=== PATIENT | male | born 1940 | race Caucasian/White ===

== ENCOUNTER → 2016-11-27 | Outpatient (CLI) | payer MEDICARE, BC ==
--- NOTE | 2016-11-27 12:48 | PN ---
DATE OF SERVICE: 11/27/2016 A 76-year-old gentleman who has been followed in the sleep center for treatment of obstructive sleep apnea/hypopnea syndrome. Patient continues to successfully use his treatment with BiPAP using it every night without significant problems. No snoring with the machine. [place] Sleepiness Scale is 5. Patient brought his BiPAP unit. I checked unit. BiPAP pressure is 15/11. Usage is 30 out of 30 nights for more than 4 hours. Subsequently 100% usage for more than 4 hours. No leak. Apnea-hypopnea index for last month is 1.8. Humidity at the level of 2. Patient did increase his weight from 215 pounds last year until 223 pounds today, but it is about the same weight as he had 2 years ago. MEDICATIONS: ( ), hydrochlorothiazide, omeprazole, metformin, atorvastatin, ( ). During physical, 76-year-old gentleman without distress. VITAL SIGNS: BP 154/78, HR 64, RR 16, height 67, weight 223.6, temp 97.7, oxygen saturations room air 94%. HEENT: PERRLA, EOMI. Evaluation of oropharynx showed extremely low position of soft palate. Neck: Supple. No JVD. Thyroid is not palpable. LUNGS: Clear to percussion and to auscultation. Good air exchange. No wheezing or rhonchi. HEART: S1, S2 regular. No murmurs, gallops, or rubs. ABDOMEN: Soft and nontender. Bowel sounds are present. No organomegaly appreciated. EXTREMITIES: No clubbing or cyanosis. INSTRUCTIONAL SUPPORT TECHNICIAN: Awake, alert, and oriented x3. Cranial nerves 2 to 7 intact. There is no fasciculation or atrophy noted. No focal deficits observed. IMPRESSION: 1. Obstructive sleep apnea/hypopnea syndrome clinically and by reading from the machine on control with BiPAP by the pressure 15/11. Patient demonstrated 100% compliance benefiting from treatment. 2. Obesity. 3. Hyperlipidemia. 4. Acid reflux. 5. Diabetes mellitus. 6. Status post bilateral knee replacement. 7. Status post cataract surgery bilaterally. PLAN: 1. Continue treatment with BiPAP every night for the whole night. 2. Prescription for all necessary BiPAP supplies, including mask, tube, filters. 3. Sleep hygiene with regular time in bed for at least 8 hours. 4. No driving if feeling any sleepiness. 5. Follow-up visit in one year. Thank you very much for allowing me to participate in the management of your patient. Sincerely, Micky South MD, PhD, FAASM. Diplomat of [place] [employer], Sleep Medicine Board by [place] [employer] [place] [employer] Negative Notcher of [facility]
== END | disposition home or self-care (01) ==
LOC: SLEEP 10:01
PROVIDERS: ATTEND Internal Medicine
DX: G47.33 Obstructive sleep apnea (adult) (pediatric) (principal); E66.9 Obesity, unspecified; E78.5 Hyperlipidemia, unspecified; K21.9 Gastro-esophageal reflux disease without esophagitis; E11.9 Type 2 diabetes mellitus without complications; Z96.653 Presence of artificial knee joint, bilateral; Z98.890 Other specified postprocedural states; Z79.899 Other long term (current) drug therapy; Z79.84 Long term (current) use of oral hypoglycemic drugs

== ENCOUNTER → 2018-01-21 | Outpatient (CLI) | payer MEDICARE, BC ==
--- NOTE | 2018-01-22 08:20 | CT ---
EXAMINATION TYPE: CT chest w con DATE OF EXAM: 01/21/2018 COMPARISON: NONE HISTORY: Abnormal Chest sounds per patient CT DLP: 751 mGycm Automated exposure control for dose reduction was used. CONTRAST: CT scan of the chest is performed with IV Contrast, patient injected with 100 mL of Isovue 300. FINDINGS: LUNGS: There are reticular opacities present bilaterally in the immediate subpleural lung, compatible with moderate interstitial lung disease including the upper lobes, there may be minimal honeycombing at the right lung base. No evident lung mass, pleural effusion. MEDIASTINUM: There are no greater than 1 cm hilar or mediastinal lymph nodes. Subcarinal calcified node present. No pericardial effusion is seen. AORTA: No additional significant abnormality is seen. There are coronary artery calcifications prese nt. Pulmonary arteries appear dilated. OTHER: Dependent high density present within the gallbladder. Cystic focus present within the liver near the steve measures 2.2 cm. Old left anterior rib fracture is present at the fourth fifth sixth r ibs on the left. Thoracic spondylosis is present. IMPRESSION: Interstitial lung disease. Correlate for pulmonary artery hypertension. Coronary artery disease. Possible granulomatous disease. Cholelithiasis and additional findings above.
== END | disposition home or self-care (01) ==
LOC: RADCTMAIN 16:42
PROVIDERS: ATTEND Family Medicine
DX: J84.89 Other specified interstitial pulmonary diseases (principal); J84.9 Interstitial pulmonary disease, unspecified; I25.10 Atherosclerotic heart disease of native coronary artery without angina pectoris
CPT/HCPCS: 82565; 84520; 71260; 36415; Q9967

== ENCOUNTER → 2018-02-12 | Outpatient (CLI) | payer MEDICARE, BC ==
--- NOTE | 2018-02-12 10:20 | US ---
EXAMINATION TYPE: US abdomen limited DATE OF EXAM: 02/12/2018 COMPARISON: CT 01/21/2018 CLINICAL HISTORY: K80.20 cholecystitis. EXAM MEASUREMENTS: Liver Length: 15.7 cm Gallbladder Wall: 0.3 cm CBD: 0.4 cm Right Kidney: 10.9 x 4.9 x 6.0 cm Patient had cough and trouble holding his breath, excessive overlying bowel gas, only able to scan in tercostally with limited window. Pancreas: Obscured by bowel gas Liver: very limited visualization, unable to see liver cyst seen on CT Gallbladder: limited visualization, unable to see dependant high density seen on CT Evidence for sonographic Latham's sign: no CBD: wnl Right Kidney: wnl IMPRESSION: 1. There are some mild thickening of the gallbladder wall. Clinical correlation for acute cholecystit is is recommended. 2. Examination is very limited due to bowel gas.
== END | disposition home or self-care (01) ==
LOC: RADUSMAIN 09:08
PROVIDERS: ATTEND Family Medicine
DX: K82.8 Other specified diseases of gallbladder (principal)
CPT/HCPCS: 76705

== ENCOUNTER → 2018-02-16 | Outpatient (CLI) | payer MEDICARE, BC ==
--- NOTE | 2018-02-17 10:02 | ECHOF ---
Referral Reason:J84.9 interstitial lung disease MEASUREMENTS -------- HEIGHT: 172.7 cm WEIGHT: 102.1 kg BP: RVIDd: 3.4 cm (< 3.3) IVSd: 1.3 cm (0.6 - 1.1) LVIDd: 5.8 cm (3.9 - 5.3) LVPWd: 1.4 cm (0.6 - 1.1) IVSs: 1.6 cm LVIDs: 3.5 cm LVPWs: 1.6 cm LAESV Index (A-L): 36.24 ml/m Ao Diam: 4.5 cm (2.0 - 3.7) AV Cusp: 2.3 cm (1.5 - 2.6) MV E Fernando: 0.67 m/s MV DecT: 509 ms MV A Fernando: 0.95 m/s MV E/A Ratio: 0.70 AR PHT: 906 ms RAP: 5.00 mmHg RVSP: 10.57 mmHg FINDINGS -------- Resting bradycardia (HR<60bpm). This was a technically adequate study. The left ventricular size is normal. There is mild concentric left ventricular hypertrophy. Overa ll left ventricular systolic function is normal with, an EF between 55 - 60 %. The right ventricle is normal in size and function. LA is midly dilated 29-33ml/m2. The right atrium is normal in size. Aortic valve is trileaflet and is mildly thickened. There is mild aortic regurgitation. There is no evidence of aortic stenosis. The mitral valve leaflets are mildly thickened. Mild mitral annular calcification present. There is trace to mild mitral regurgitation. Trace tricuspid regurgitation present. Right ventricular systolic pressure is normal at < 35 mmHg. There is no evidence of pulmonary hypertension. Trace/mild (physiologic) pulmonic regurgitation. The aortic root is mildy dilated up to 4.0 cm. Normal inferior vena cava with normal inspiratory collapse consistent with estimated right atrial pre ssure of 5 mmHg. There is no pericardial effusion. CONCLUSIONS -------- 1. Resting bradycardia (HR<60bpm). 2. This was a technically adequate study. 3. The left ventricular size is normal. 4. There is mild concentric left ventricular hypertrophy. 5. Overall left ventricular systolic function is normal with, an EF between 55 - 60 %. 6. LA is midly dilated 29-33ml/m2. 7. Aortic valve is trileaflet and is mildly thickened. 8. There is mild aortic regurgitation. 9. The mitral valve leaflets are mildly thickened. 10. Mild mitral annular calcification present. 11. There is trace to mild mitral regurgitation. 12. Trace tricuspid regurgitation present. 13. Right ventricular systolic pressure is normal at < 35 mmHg. 14. There is no evidence of pulmonary hypertension. 15. Trace/mild (physiologic) pulmonic regurgitation. 16. The aortic root is mildy dilated up to 4.0 cm. 17. There is no pericardial effusion. ICHTHYOLOGY TEACHER: Dean Samuel RDCS
== END | disposition home or self-care (01) ==
LOC: RADECHMAIN 15:26
PROVIDERS: ATTEND Family Medicine
DX: I34.0 Nonrheumatic mitral (valve) insufficiency (principal); I51.7 Cardiomegaly; I35.8 Other nonrheumatic aortic valve disorders
CPT/HCPCS: 93306

== ENCOUNTER → 2018-11-25 | Outpatient (CLI) | payer MEDICARE, BC ==
--- NOTE | 2018-11-25 11:57 | SFUN ---
SLEEP CENTER FOLLOW UP NOTE DATE OF SERVICE: 11/25/2018 This 78-year-old gentleman has been followed in sleep center for treatment of obstructive sleep apnea-hypopnea syndrome. Patient successfully continuing to use his CPAP equipment recently developed some problems related to the mask. The patient is using a full-face mask and he developed some pain in the right eye and skin area of the head. I checked his CPAP unit. Usage is 22 out of 30 nights for more than 4 hours for the last month and that includes several days recently when patient was not able to use CPAP. [place] Sleepiness Scale is 8. I checked BiPAP unit pressure is 15/11 cm of water. Apnea-hypopnea index 4.9. No significant leak. MEDICATIONS: Hydrochlorothiazide, omeprazole, metformin, atorvastatin, medication for blood pressure, Flonase. PHYSICAL EXAMINATION: During physical exam, patient in no distress. VITAL SIGNS: BP 168/76, HR 48, RR 16, height 5 feet 6 inches, weight 229 pounds, body mass index 36.9, temperature 97.8, oxygen saturation at room air 92%. HEENT: PERRLA, EOMI. Oropharynx extremely low position of soft palate. Very painful area on the right side of the face to touch. NECK: Supple, no JVD. Thyroid is not palpable. LUNGS: Clear to percussion and to auscultation. Good air exchange. No wheezing or rhonchi. HEART: S1, S2 regular. No murmurs, gallops, or rubs. ABDOMEN: Soft and nontender. Bowel sounds are present. No organomegaly appreciated. EXTREMITIES: No clubbing or cyanosis. TELEVISION MAINTENANCE MAN: Awake, alert, and oriented X3. Cranial nerves 2 to 7 intact. There is no fasciculation or atrophy. noted. No focal deficits observed. IMPRESSION: 1. Obstructive sleep apnea-hypopnea syndrome. Patient demonstrated good compliance with treatment benefitting from treatment. 2. Obesity. 3. Hypertension. 4. Benign prostatic hypertrophy. 5. Hyperlipidemia. 6. Acid reflux. 7. Diabetes mellitus. 8. Pain on the right side of the face, probably neuralgia. The patient will follow with neurologist. 9. Status post bilateral knee replacement. 10.Status post cataract surgery bilaterally. PLAN: 1. I initiated patient with Yusra View full-face mask. The patient like it. This mask goes to the nose from below, not from above. It is a full-face mask. Prescription for that mask. 2. Losing weight. 3. Sleep hygiene with regular time in bed for at least 8 hours. 4. No driving if feeling any sleepiness. 5. Prescription for all necessary CPAP supplies including tube and filters. Thank you very much for allowing me to participate in management of your patient. Sincerely, Micky South MD, PhD, FAASM Diplomat of [place] [employer] [place] [employer] Wire Coiler Machine Operator of [facility] [place] MMODL / IJN: [id number] /
== END | disposition home or self-care (01) ==
LOC: SLEEP 09:58
PROVIDERS: ATTEND Internal Medicine
DX: G47.33 Obstructive sleep apnea (adult) (pediatric) (principal); E66.9 Obesity, unspecified; I10 Essential (primary) hypertension; N40.0 Benign prostatic hyperplasia without lower urinary tract symptoms; E78.5 Hyperlipidemia, unspecified; K21.9 Gastro-esophageal reflux disease without esophagitis; E11.9 Type 2 diabetes mellitus without complications; R51 Headache; Z96.653 Presence of artificial knee joint, bilateral; Z98.890 Other specified postprocedural states; Z99.89 Dependence on other enabling machines and devices; Z68.36 Body mass index [BMI] 36.0-36.9, adult; Z79.899 Other long term (current) drug therapy; Z79.84 Long term (current) use of oral hypoglycemic drugs

== ENCOUNTER → 2018-12-20 | Outpatient (CLI) | payer MEDICARE, BC ==
--- NOTE | 2018-12-21 07:37 | MR ---
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 IAC protocol was performed for attention to Meckel's cave. FINDINGS: Diffusion weighted images demonstrate no evidence of a recent infarct or other diffusion ab normality. There is no extra-axial fluid collection. There are few scattered foci of T2/FLAIR hyperi ntensity in the subcortical and periventricular white matter, mild burden. The ventricular system and cisternal spaces are symmetrically prominent compatible with age-related volume loss. There is slight asymmetric enhancement of the right trigeminal nerve at its origin from the jeff near the main trigeminal nucleus. This is best seen on small field of view coronal postcontrast T1-weight ed nonfat sat images and not well appreciated on axial sequences. There is no evidence of compression of the nerve by the superior cerebellar artery nor mass at the cerebellar pontine angle. No primary mass is seen to suggest perineural tumoral spread. T1 and T2 within Meckel's cave appear unremarkable without abnormal enhancement. On coronal postcontrast nonfat sat image 2 the 2 is closely associated with the prominent right carotid artery (6 mm). This does not meet size criteria for dolichoectasia. No enlargement of the superior ophthalmic vein is seen to suggest a cavernous fistula. No pituitary gland mass impressing upon the structures within Meckel's cave. Midline structures demonstrate normal morphology. 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 Cerebral aqueduct is patent. This measures approximately 2 mm. T he craniocervical junction appears within normal limits. The dural venous sinuses appear patent. The visualized sinuses demonstrate complete opacification of the left maxillary sinus, moderate coastal t hickening in the ethmoid sinuses and right maxillary sinus, mucosal thickening in the left frontal re cess, and scant mucosal thickening of the sphenoid sinuses. The frontal sinuses are well aerated. Kaz y scant fluid is seen within the bilateral mastoid air cells. The left vertebral artery is dominant w ith a diminutive right vertebral artery noted. IMPRESSION: 1. There is no impression on either 5th cranial nerve by a vascular loop no appreciable aneurysm. Mec jose's cave appears unremarkable with no mass, meningioma, or enlargement. No pituitary gland mass or cerebellar pontine angle mass impressing upon the 5th cranial nerve. 2. There is very mild asymmetric enhancement of the origin of the 5th cranial nerve on the right rela ting to nonspecific neuritis. 3. The right V2 segment is intimately associated with the carotid artery within Meckel's cave althoug h there is no aneurysm or dolichoectasia of the cavernous portion of the internal carotid artery nor petrous portion of the internal carotid artery. 4. Mild burden nonspecific white matter change, likely on the basis of chronic microangiopathy and ag e-related volume loss with no lobar preference. 5. Severe near pansinusitis. Scant fluid within the mastoid air cells. Correlate for point tenderness to exclude mastoiditis.
== END ==
LOC: RADMRIMAIN 12:32
PROVIDERS: ATTEND Psychiatry & Neurology Neurology
DX: G50.0 Trigeminal neuralgia (principal); J32.4 Chronic pansinusitis
CPT/HCPCS: 70553; A9585

== ENCOUNTER → 2019-10-10 | Outpatient (CLI) | payer MEDICARE, BC ==
[2019-10-10 11:29] LABS: Prothrombin Time 10.4 sec (9.0-12.0)
[2019-10-10 11:30] LABS: HCT 40.1 % (39.0-53.0); HGB 13.1 gm/dL (13.0-17.5); MCH 31.8 pg (25.0-35.0); MCHC 32.6 g/dL (31.0-37.0); MCV 97.7 fL (80.0-100.0); Mean Platelet Volume 8.5; Platelet Count 177 k/uL (150-450); RDW 13.7 % (11.5-15.5); WBC 7.2 k/uL (3.8-10.6)
[2019-10-10 11:33] LABS: Albumin 3.9 g/dL (3.5-5.0); Calcium 9.9 mg/dL (8.4-10.2); Potassium 4.6 mmol/L (3.5-5.1); Total Bilirubin 0.8 mg/dL (0.2-1.3); Total Protein 6.9 g/dL (6.3-8.2)
[2019-10-10 12:11] LABS: Color,Urine Yellow
[2019-10-10 12:12] LABS: Appearance,Urine Clear (Clear); Protein,Urine Negative (Negative)
[2019-10-10 12:13] LABS: Bilirubin,Urine Negative (Negative); Blood,Urine Negative (Negative); Glucose,Urine (UA) Negative (Negative); Ketones,Urine Negative (Negative)
[2019-10-10 12:14] LABS: Leukocyte Esterase,Urine Negative (Negative); Nitrite,Urine Negative (Negative); Urobilinogen,Urine <2.0 mg/dL (<2.0)
== END | disposition home or self-care (01) ==
LOC: LABPAT 10:42
PROVIDERS: ATTEND Orthopaedic Surgery
DX: Z01.818 Encounter for other preprocedural examination (principal); Z01.812 Encounter for preprocedural laboratory examination; Z79.01 Long term (current) use of anticoagulants
CPT/HCPCS: 36415; 80053; 81003; 85027; 85610; 85730; 87070; 93005

== ENCOUNTER 2019-10-18 05:32 | Day surgery (SDC) | payer MEDICARE, BC ==
[2019-10-11 11:24] VITALS: BMI 34.2
[~2019-10-18 05:32] MED LIST: ACETAMINOPHEN TAB 500 MG TAB PO ONE; GABAPENTIN 300 MG CAP PO ONE; HYDROmorphone 0.5 MG/0.5 ML SYRINGE IVP PRN; LIDOCAINE 1% 20 ML VIAL (10MG/ML) FOR IV START INTRADERMA PRN; MELOXICAM 7.5 MG TAB PO ONE; ONDANSETRON 4 MG/2 ML VIAL IVP ONE; TRANEXAMIC ACID 1,000 MG in SODIUM CHLORIDE 0.9% 100 ML IVPB ONE
[2019-10-18] MEDS ORDERED: ROPIVACAINE 246.25 MG, EPINEPHrine 0.5 MG, KETOROLAC 30 MG, cloNIDine HCL/PF 80 MCG, WA... MISCELLANE ONE ×5 (06:00)
[2019-10-18 06:05] LABS: Glucose,Whole Blood 147 mg/dL (75-99)
[2019-10-18] MEDS: LACTATED RINGERS 1,000 ML IV SCH ×2 (06:11→16:32)
[2019-10-18] MEDS ORDERED: DEXAMETHASONE SOD PHOSPHATE 10 MG/ML 1 ML VIAL IV ONE (06:12)
[2019-10-18] MEDS ORDERED: MIDAZOLAM 2 MG/2 ML VIAL ONE (06:53)
[2019-10-18] MEDS ORDERED: SODIUM CHLORIDE 0.9% 100 ML BAG ONE (06:53)
[2019-10-18] MEDS ORDERED: GLYCOPYRROLATE 0.2 MG/ML 2 ML VIAL ONE (06:53)
[2019-10-18] MEDS ORDERED: PROPOFOL 10 MG/ML 20 ML VIAL IV ONE (06:53)
[2019-10-18] MEDS ORDERED: TRANEXAMIC ACID 1,000 MG/10 ML VIAL ONE (06:53)
[2019-10-18] MEDS ORDERED: fentaNYL (PF) 50 MCG/ML 2 ML AMP ONE (06:53)
[2019-10-18] MEDS ORDERED: KETAMINE 10 MG/ML 20 ML VIAL ONE (06:53)
[2019-10-18] MEDS ORDERED: ceFAZolin 3,000 MG in SODIUM CHLORIDE 0.9% IRRIGATIO 3,000 ML IRRIGATION ONE (07:28)
[2019-10-18] MEDS ORDERED: LACTATED RINGERS 1,000 ML IV ONE (07:57)
--- NOTE | 2019-10-18 08:45 | P.OP ---
Date of Procedure: 10/18/19 Preoperative Diagnosis: Severe osteoarthritis right hip Postoperative Diagnosis: Severe osteoarthritis right hip Procedure(s) Performed: Right total hip arthroplasty with a direct anterior approach Implants: Camp and nephew Polarstem size 2 standard [employer]hew R3, 3 hole acetabular shell, 54 mm [employer] reflection 6.5 mm cancellus screw, 20 mm 2 [employer] R3, XLPE 20 acetabular liner [employer]hew Oxinium femoral head 36 m, +4 All components were press-fit. The articulation is Oxinium on polyethylene. Anesthesia: spinal Surgeon: Morgan Valdovinos Brigadier #1: Dominique Patel Estimated Blood Loss (ml): 200 (58 mL returned with Cell Saver) Pathology: other (Femoral and) Condition: stable Disposition: PACU Indications for Procedure: After failure of conservative treatment we discussed the surgical and nonsurgical treatment options at length. Patient wishes to proceed with a total hip arthroplasty with a direct anterior approach. Complications specific to this procedure were discussed at length, including but not limited to infection, leg length discrepancy, dislocation, and nerve injury. Patient is aware of all these complications and informed consent was obtained Operative Findings: The operative findings are consistent with severe osteoarthritis of the right hip Description of Procedure: Patient was seen and evaluated in the preoperative area, consent was reviewed, and the surgical site was marked with a skin marker. Patient was then brought to the operating room and given prophylactic antibiotics intravenously. 1 g of Tranexamic acid was also given. A spinal anesthetic was administered by the anesthesia department. The patient was then placed on the [place] table with the bony prominences well-padded. The hip area was then prepped and draped in usual sterile fashion. A universal timeout was then performed, which confirmed the patient's name, surgical site, ALLERGIES, and procedure being performed. Next the incision site was located at 1 cm distal and 1 cm lateral to the anterior superior iliac spine. The skin and subcutaneous tissues were sharply incised. Incision was carefully dissected down to the fascia overlying the tensor fascia carol muscle. This fascia was then incised in line with the incision. Next, using blunt finger dissection, the tensor fascia carol muscle was dissected off its investing fascia. The muscle was then carefully retracted laterally with a cobra retractor over the lateral neck of the femur. Next, the circumflex vessels were identified and cauterized using the AquaMantis device. The anterior hip capsule was then exposed. The capsule was then opened and an inverted T fashion. Cobra retractors were then placed intracapsularly. The proximal femur was then v isualized. The femoral neck was then osteotomized appropriate level above the lesser trochanter. Small amount of traction was placed with the [place] table. A small wedge of bone was then removed from the remaining femoral head. Next, using a corkscrew femoral head was easily removed from the acetabulum. On gross visual inspection, the femoral head had complete loss of articular cartilage in mul tiple periarticular osteophytes. Attention was then turned to the acetabulum. the acetabulum was exposed and any remaining labrum was excised. Sequential reaming of the acetabulum was performed using fluoroscopic guidance. When the appropriate size was reached, a trial was then placed. The position and fit of the trial was checked with fluoroscopy. The trial was then removed. Then, using fluoroscopic guidance, the final implant was impacted at 20 of anteversion and 40 of abduction, and fully seated in the acetabulum. 2 screws were then placed in the acetabulum. Again fluoroscopy was used to check position of the screws. Next, the liner was then impacted, with a 20 elevated liner located in the anterior superior quadrant. Component locking was confirmed. Attention was then directed to the femur. With the aid of the [place] table, the femur was externally rotated to approximately 130, extended, and abducted under the opposite leg. A side hook was then placed under the proximal femur, and the side hook elevator was used to elevate the proximal femur. Retractors were then placed. A capsular release was performed, as well as a release of the conjoined tendon, which afforded excellent visualization of the proximal femur. Next, a box osteotome was used to lateralize the proximal femur. A hand former was then used to locate the femoral canal. Sequential broaching was then performed with appropriate size which afforded excellent fixation in the proximal femur. A trial was then placed with appropriate head and neck, and the hip was gently reduced with the aid of the [place] table. Fluoroscopy was then used to check position of the components, as well as to ensure equal leg lengths. The hip was then gently dislocated and the trials were then removed. Final implants were then impacted and the hip was again reduced. Final fluoroscopic x-rays confirmed that the components were in anatomic position, as well as equal leg lengths. The hip was also taken through range of motion, and found to be stable. The hip was then copiously irrigated with antibiotic solution with pulsatile lavage. The hip was then irrigated with Irrisept solution. The soft tissues w ere then injected with a ropivacaine solution, which consisted of 246.25 mg of ropivacaine, 0.5 mg of epinephrine, 30 mg of Toradol, 80 g of clonidine, and 48.45 mL of sterile water, for a total of 100 mL of fluid injected. A second dose of 1 g of Tranexamic acid was also given. the fascia was then closed with 2-0 strata fix suture. The subcutaneous tissue was closed with 3-0 Vicryl. The subcuticular tissue was closed with 3-0 strata fix suture. The skin was then closed with Dermabond glue and a sterile silver dressing. The patient was then transferred to the recovery room in stable con dition. The children's nursery assistant FLORES Khan was required due to the complexity of surgery, and the need for skilled surgical scheduler for positioning, draping, exposure, retraction, and closure of the wound.
[2019-10-18] MEDS ORDERED: MAGNESIUM HYDROXIDE 2,400 MG/10 ML CUP PO PRN (08:56)
[2019-10-18] MEDS ORDERED: HYDROcodone/APAP 5-325MG 1 EACH TAB PO PRN (08:56)
[2019-10-18] MEDS ORDERED: HYDROmorphone 0.5 MG/0.5 ML SYRINGE IVP PRN ×3 (08:56)
[2019-10-18] MEDS ORDERED: hydrOXYzine PAMOATE 25 MG CAP PO PRN (08:56)
[2019-10-18] MEDS ORDERED: TEMAZEPAM 15 MG CAP PO PRN (08:56)
[2019-10-18] MEDS ORDERED: ONDANSETRON 4 MG/2 ML VIAL IVP PRN (08:56)
[2019-10-18] MEDS ORDERED: NALOXONE 0.4 MG/ML 1 ML VIAL IV PRN (08:56)
[2019-10-18 09:05] LABS: Glucose,Whole Blood 167 mg/dL (75-99)
--- NOTE | 2019-10-18 09:07 | FL ---
Fluoroscopy HISTORY: Anterior hip replacement 38 seconds fluoroscopy time supplied to the referring clinician. 2 intraoperative C-arm images docum ent the procedure. See dictated report from orthopedic surgery.
--- NOTE | 2019-10-18 09:08 | XR ---
Limited right hip HISTORY: Anterior hip replacement 2 intraoperative C-arm images document the procedure.
--- NOTE | 2019-10-18 09:18 | XR ---
Limited right hip HISTORY: Postop Single frontal view of the right hip. Patient status post right hip arthroplasty. Anatomic alignment. Lucency present in the soft tissues c onsistent with postop change. IMPRESSION: Orthopedic follow-up
[2019-10-18 11:41] LABS: Glucose,Whole Blood 167 mg/dL (75-99)
[2019-10-18] MEDS ORDERED: ATORVASTATIN 80 MG TAB PO SCH ×2 (12:00→21:00)
[2019-10-18] MEDS: INSULIN ASPART (NovoLOG) 100 UNIT/ML VIAL SQ SCH ×3 (14:34→20:15)
[2019-10-18] MEDS: HYDROcodone/APAP 5-325MG 1 EACH TAB PO PRN ×2 (14:37→20:26)
[2019-10-18 16:47] LABS: Glucose,Whole Blood 213 mg/dL (75-99)
--- NOTE | 2019-10-18 20:01 | P.CONS ---
History of Present Illness - Reason for Consult Consult date: 10/18/19 medical management Requesting physician: Yonny Valdovinos - Chief Complaint Right total hip elective - History of Present Illness Patient presents to the hospital for elective right total hip arthroplasty. Postsurgical day patient is sitting up in chair, he is awake alert and oriented. Tolerating diet and is already tolerating activity with physical therapy Review of Systems Constitutional: Reports as per HPI Ears, nose, mouth and throat: Reports as per HPI Cardiovascular: Reports as per HPI Respiratory: Reports as per HPI Gastrointestinal: Reports as per HPI Genitourinary: Reports as per HPI Musculoskeletal: Reports as per HPI Integumentary: Reports as per HPI Neurological: Reports as per HPI Psychiatric: Reports as per HPI Endocrine: Reports as per HPI Hematologic/Lymphatic: Reports as per HPI Allergic/Immunologic: Reports as per HPI Past Medical History Past Medical History: Diabetes Mellitus, Hyperlipidemia, Hypertension, Osteoarthritis (OA), Prostate Disorder, Sleep Apnea/CPAP/BIPAP Additional Past Medical History / Comment(s): has cpap machine History of Any Multi-Drug Resistant Organisms: None Reported Past Surgical History: Hernia Repair, Joint Replacement Additional Past Surgical History / Comment(s): precancerous lesions removed from nose and chin. robin knee replacements Past Anesthesia/Blood Transfusion Reactions: No Reported Reaction Past Psychological History: No Psychological Hx Reported Smoking Status: Former smoker Past Alcohol Use History: Occasional Additional Past Alcohol Use History / Comment(s): smoked 3-4 years 1 ppd quit 1963 Past Drug Use History: None Reported - Past Family History Mother Family Medical History: Cancer Additional Family Medical History / Comment(s): "bowel cancer" Father Family Medical History: CVA/TIA Medications and Allergies Home Medications Medication Instructions Recorded Confirmed Type Atorvastatin [Lipitor] 40 mg PO Q48H 10/11/19 10/11/19 History Atorvastatin [Lipitor] 80 mg PO Q48H 10/11/19 10/11/19 History Dutasteride 0.5 mg PO DAILY 10/11/19 10/11/19 History Fluticasone Nasal [place] [Flonase 1 spray EA NOSTRIL DAILY 10/11/19 10/11/19 History Nasal [place]] Multivitamins, Thera [Multivitamin 1 tab PO DAILY 10/11/19 10/11/19 History (formulary)] Tamsulosin [Flomax] 0.4 mg PO BID 10/11/19 10/11/19 History metFORMIN HCL 1,000 mg PO DAILY 10/11/19 10/11/19 History Aspirin 325 mg PO BID #60 tab 10/18/19 Rx Sennosides-Docusate Sodium 2 tab PO DAILY #30 tablet 10/18/19 Rx [Senokot-S] amLODIPine [Norvasc] 10 mg PO DAILY 10/18/19 10/18/19 History Allergies Allergy/AdvReac Type Severity Reaction Status Date / Time No Known Allergies Allergy Verified 10/18/19 05:51 Physical Exam Osteopathic Statement: *. No significant issues noted on an osteopathic structural exam other than those noted in the History and Physical/Consult. Vitals: Vital Signs Temp Pulse Resp BP Pulse Ox 10/18/19 18:58 97.7 F 53 L 15 128/71 94 L 10/18/19 15:00 97.6 F 74 16 159/75 90 L 10/18/19 12:00 60 138/83 95 10/18/19 11:45 54 L 149/79 95 10/18/19 11:30 57 L 152/79 94 L 10/18/19 11:15 71 149/79 95 10/18/19 11:00 75 144/84 94 L 10/18/19 10:45 60 150/77 95 10/18/19 10:30 58 L 143/70 95 10/18/19 10:15 78 142/75 94 L 10/18/19 10:00 97.7 F 62 16 146/70 93 L 10/18/19 09:35 77 16 148/69 96 10/18/19 09:20 63 16 130/68 97 10/18/19 09:05 83 16 140/69 93 L 10/18/19 08:51 98 F 95 14 132/68 92 L 10/18/19 05:57 97.4 F L 66 17 151/67 95 Intake and Output 10/18/19 10/18/19 10/18/19 06:59 14:59 22:59 Intake Total 300 1101 Output Total 200 Balance 300 901 Intake: IV 300 1101 Output: Estimated Blood Loss 200 Other: # Voids 1 1 Weight 100.839 kg 100.839 kg General: [Patient awake, alert and oriented times 3. Patient in no acute distress.] HEENT: [PERRL. EOMI. No pharyngeal erythema or exudate.] Neck: [No adenopathy.] Cardiac: [Heart regular in rate and rhythm. No S3. No S4. No clicks, rubs. No murmur.] Lungs: [Clear to auscultation bilaterally.] Abdomen: [No mass. No organomegaly. Bowel sounds presnt and normoactive in all 4 quadrants.] Extremes: [] Hip dressing dry and clean has been ambulating pain controlled] : [] Musculoskeletal: [No joint erythema, edema or tenderness.] Skin: [No rash.] Neurologic: [No lateralizing deficits. CN II - XII grossly intact.] Lymphatic: [No adenopathy.] Results Labs: Abnormal Lab Results - Last 24 Hours (Table) 10/18/19 10/18/19 10/18/19 Range/Units 06:00 09:03 11:39 POC Glucose (mg/dL) 147 H 167 H 167 H (75-99) mg/dL 10/18/19 Range/Units 16:44 POC Glucose (mg/dL) 213 H (75-99) mg/dL Assessment and Plan (1) History of total right hip arthroplasty Current Visit: Yes Status: Acute Code(s): Z96.641 - PRESENCE OF RIGHT ARTIFICIAL HIP JOINT SNOMED Code(s): 857241738539 Plan: #1 blood pressure control with current meds 2. meds restarted 3. patient doing well anticipate discharge per orthopedics will see in office 1 week Time with Patient: Greater than 30
[2019-10-18] MEDS: ASPIRIN 325 MG TAB PO SCH (20:13)
[2019-10-18 20:14] LABS: Glucose,Whole Blood 201 mg/dL (75-99)
[2019-10-18] MEDS: TAMSULOSIN 0.4 MG CAP.ER.24H PO SCH (20:14)
[2019-10-18] MEDS ORDERED: BISOPROLOL-HCTZ 5-6.25 MG 1 EACH TAB PO SCH (21:00)
[2019-10-18] MEDS ORDERED: SENNOSIDES-DOCUSATE SODIUM 1 EACH TAB PO SCH (21:00)
[2019-10-19] MEDS: LACTATED RINGERS 1,000 ML IV SCH ×2 (04:12)
[2019-10-19] MEDS: HYDROcodone/APAP 5-325MG 1 EACH TAB PO PRN (05:12)
[2019-10-19 07:13] LABS: Glucose,Whole Blood 129 mg/dL (75-99)
[2019-10-19 07:24] VITALS: BP 151/75; PULSE 53; RESP 18; TEMP 98.3
[2019-10-19] MEDS ORDERED: metFORMIN 500 MG TAB PO SCH (07:30)
[2019-10-19] MEDS: TAMSULOSIN 0.4 MG CAP.ER.24H PO SCH (08:18)
[2019-10-19] MEDS: ASPIRIN 325 MG TAB PO SCH (08:18)
[2019-10-19 08:19] LABS: Basophils % (A) 0 %; Eosinophils # (A) 0.1 k/uL (0-0.7); Eosinophils % (A) 1 %; HCT 37.8 % (39.0-53.0); Lymphocytes # (A) 1.3 k/uL (1.0-4.8); Lymphocytes % (A) 16 %; MCH 30.8 pg (25.0-35.0); MCHC 31.8 g/dL (31.0-37.0); Mean Platelet Volume 8.4; Monocytes # (A) 0.6 k/uL (0-1.0); Monocytes % (A) 7 %; Neutrophils # (A) 6.1 k/uL (1.3-7.7); Neutrophils % (A) 73 %; Platelet Count 187 k/uL (150-450); RBC 3.89 m/uL (4.30-5.90); RDW 13.8 % (11.5-15.5); WBC 8.3 k/uL (3.8-10.6)
[2019-10-19] MEDS: INSULIN ASPART (NovoLOG) 100 UNIT/ML VIAL SQ SCH (08:19)
--- NOTE | 2019-10-19 08:34 | P.DS ---
Providers Expected date of discharge: 10/19/19 Attending physician: Morgan Valdovinos Consults: 10/18/19 08:56 Consult Physician Routine Consulting Provider: Duglas Lawson Consult Reason/Comments: medical management Do you want consulting provider notified?: Yes Primary care physician: Duglas Lawson - Discharge Diagnosis(es) (1) Primary osteoarthritis of right hip Current Visit: Yes Status: Acute (2) Status post right hip replacement Current Visit: Yes Status: Acute Hospital Course: This is a 79-year-old male with known history of degenerative arthritis of the right hip. The patient presents for evaluation. After discussion and consideration patient elects to proceed with total hip arthroplasty. The patient is seen preoperatively by Dr. Lawson and cardiology and cleared for surgery. Patient is admitted to [facility] on 10/18/2019 for total hip arthroplasty. The procedures performed without complication or sequelae. The patient is doing well postoperatively. Labs and vital signs are stable on day of discharge. On day of discharge patient's hip incision is healing well. There is minimal erythema. There is no drainage noted at this time. There is minimal soft tissue swelling to the hip and thigh. Patient has full foot and ankle motion without difficulty or pain. Neurovascular status to the right lower extremity is intact. Patient is discharged to home in stable condition. Pertinent Studies: Laboratory Tests 10/19/19 10/19/19 07:10 07:31 WBC 8.3 RBC 3.89 L Hgb 12.0 L Hct 37.8 L POC Glucose (mg/dL) 129 H Patient Condition at Discharge: Stable Plan - Discharge Summary Discharge Rx Participant: No New Discharge Prescriptions: New Aspirin 325 mg PO BID #60 tab Sennosides-Docusate Sodium [Senokot-S] 2 tab PO DAILY #30 tablet HYDROcodone/APAP 5-325MG [[place] 5] 1 - 2 each PO Q4-6H PRN #56 tab PRN Reason: Pain No Action Multivitamins, Thera [Multivitamin (formulary)] 1 tab PO DAILY metFORMIN HCL 1,000 mg PO DAILY Tamsulosin [Flomax] 0.4 mg PO BID Dutasteride 0.5 mg PO DAILY Atorvastatin [Lipitor] 80 mg PO Q48H Atorvastatin [Lipitor] 40 mg PO Q48H Fluticasone Nasal [place] [Flonase Nasal [place]] 1 spray EA NOSTRIL DAILY amLODIPine [Norvasc] 10 mg PO DAILY Discharge Medication List Atorvastatin [Lipitor] 40 mg PO Q48H 10/11/19 [History] Atorvastatin [Lipitor] 80 mg PO Q48H 10/11/19 [History] Dutasteride 0.5 mg PO DAILY 10/11/19 [History] Fluticasone Nasal [place] [Flonase Nasal [place]] 1 spray EA NOSTRIL DAILY 10/11/19 [History] Multivitamins, Thera [Multivitamin (formulary)] 1 tab PO DAILY 10/11/19 [History] Tamsulosin [Flomax] 0.4 mg PO BID 10/11/19 [History] metFORMIN HCL 1,000 mg PO DAILY 10/11/19 [History] Aspirin 325 mg PO BID #60 tab 10/18/19 [Rx] Sennosides-Docusate Sodium [Senokot-S] 2 tab PO DAILY #30 tablet 10/18/19 [Rx] amLODIPine [Norvasc] 10 mg PO DAILY 10/18/19 [History] HYDROcodone/APAP 5-325MG [[place] 5] 1 - 2 each PO Q4-6H PRN #56 tab 10/19/19 [Rx] Follow up Appointment(s)/Referral(s): Morgan Valdovinos DO [Doctor of Osteopathic Medicine] - 2 Weeks Activity/Diet/Wound Care/Special Instructions: Weightbearing as tolerated with walker Keep dressing in place for 10 days unless saturated Aspirin 325 mg twice a day May shower over dressing Follow up with Dr. Morgan Valdovinos in 2 weeks. Call [facility] with questions or concerns, Discharge Disposition: HOME WITH HOME HEALTH SERVICES
[2019-10-19] MEDS ORDERED: FLUTICASONE 50MCG/SPRAY NASAL 16GM EA NOSTRIL SCH (09:00)
[2019-10-19] MEDS ORDERED: FINASTERIDE 5 MG TAB PO SCH (09:00)
[2019-10-19] MEDS ORDERED: MULTIVITAMINS, THERA 1 EACH TAB PO SCH (09:00)
[2019-10-19] MEDS ORDERED: amLODIPine 10 MG TAB PO SCH (09:00)
[2019-10-19 15:53] LABS: Hemoglobin A1C 6.1 % (4.0-6.0)
[2019-10-19] MEDS ORDERED: ATORVASTATIN 40 MG TAB PO SCH (21:00)
== END 2019-10-19 12:01 | disposition home health service (06) ==
LOC: OR 05:32 → 4SSUR 08:45 → OR 10-19 12:01
PROVIDERS: ATTEND Orthopaedic Surgery
DX: M16.11 Unilateral primary osteoarthritis, right hip (principal); I10 Essential (primary) hypertension; E78.2 Mixed hyperlipidemia; E11.9 Type 2 diabetes mellitus without complications; G47.33 Obstructive sleep apnea (adult) (pediatric); N40.0 Benign prostatic hyperplasia without lower urinary tract symptoms; K21.9 Gastro-esophageal reflux disease without esophagitis; J84.9 Interstitial pulmonary disease, unspecified; Z79.84 Long term (current) use of oral hypoglycemic drugs; Z79.899 Other long term (current) drug therapy; Z99.89 Dependence on other enabling machines and devices; Z96.653 Presence of artificial knee joint, bilateral; Z87.891 Personal history of nicotine dependence; Z83.3 Family history of diabetes mellitus; Z80.0 Family history of malignant neoplasm of digestive organs; Z82.49 Family history of ischemic heart disease and other diseases of the circulatory system; Z97.3 Presence of spectacles and contact lenses
CPT/HCPCS: 97116; 97161; 97165; 85025; 88300; 83036; 73501; 27130; C1776; S0138; J2250; J0171; J1100; J0690 ×2; J2405; J3010; J1885; J2795; J2704; J0735; 86850; 86900; 86901

== ENCOUNTER → 2019-11-02 | Outpatient (CLI) | payer MEDICARE, BC ==
[2019-11-02 10:41] LABS: Basophils # (A) 0.1 k/uL (0-0.2); Basophils % (A) 1 %; Eosinophils # (A) 0.2 k/uL (0-0.7); Eosinophils % (A) 2 %; HCT 35.5 % (39.0-53.0); HGB 11.3 gm/dL (13.0-17.5); Lymphocytes # (A) 1.1 k/uL (1.0-4.8); Lymphocytes % (A) 14 %; MCH 30.8 pg (25.0-35.0); MCHC 31.7 g/dL (31.0-37.0); MCV 97.1 fL (80.0-100.0); Mean Platelet Volume 7.7; Monocytes # (A) 0.4 k/uL (0-1.0); Monocytes % (A) 5 %; Neutrophils # (A) 5.6 k/uL (1.3-7.7); Neutrophils % (A) 75 %; Platelet Count 253 k/uL (150-450); RBC 3.66 m/uL (4.30-5.90); RDW 14.2 % (11.5-15.5); WBC 7.5 k/uL (3.8-10.6)
--- NOTE | 2019-11-02 11:27 | XR ---
EXAMINATION TYPE: XR chest 2V DATE OF EXAM: 11/02/2019 COMPARISON: Prior chest x-ray 08/03/2019, CT chest 01/21/2018 HISTORY: Shortness of breath TECHNIQUE: Frontal and lateral views of the chest are obtained. FINDINGS: The interstitial changes at the upper lobes are again noted. No evident pneumothorax or pl eural effusion. Heart size is stable. Elevation right hemidiaphragm is chronic. Nodular density is pr esent in mid left lung measuring approximately 11 mm. Old left-sided rib fractures are not seen defin itively. Pulmonary artery suggests pulmonary artery hypertension. IMPRESSION: Interstitial lung disease. Nodular density left midlung is indeterminate, follow-up is s uggested. Correlate for pulmonary artery hypertension.
== END | disposition home or self-care (01) ==
LOC: LABWHC1 09:22
PROVIDERS: ATTEND Family Medicine
DX: J84.9 Interstitial pulmonary disease, unspecified (principal); Z98.1 Arthrodesis status; D50.8 Other iron deficiency anemias
CPT/HCPCS: 36415; 71046; 85025

== ENCOUNTER → 2020-09-27 | Outpatient (CLI) | payer MEDICARE, BC ==
--- NOTE | 2020-09-27 21:03 | CT ---
EXAMINATION TYPE: CT chest wo con DATE OF EXAM: 09/27/2020 COMPARISON: Chest CT January 21, 2018. Chest x-ray September 13, 2020 HISTORY: f/u lung disease CT DLP: 266 mGycm. Automated Exposure Control for Dose Reduction was Utilized. TECHNIQUE: CT scan of the thorax is performed without IV contrast. High-resolution protocol with 1 m m sequences obtained in 10 mm intervals in supine and prone technique. FINDINGS: LUNGS: Since prior CT there is interval progression of peripheral reticulation and fibrotic change bi laterally throughout upper and lower lungs. No pleural effusion or pneumothorax noted bilaterally. El evated right hemidiaphragm redemonstrated. No suspicious masses. No bronchiectasis. MEDIASTINUM: Lack of IV contrast and technique are noted to limit evaluation for mediastinal and ganga cially hilar adenopathy. There are no definitive greater than 1 cm hilar or mediastinal lymph nodes. No cardiomegaly or pericardial effusion is seen. Coronary artery calcification and/or stents are pr esent. OTHER: Small dependent stones within the gallbladder redemonstrated. Multilevel spurring in the spine . Bilateral subareolar gynecomastia is slightly more prominent from prior CT. IMPRESSION: Moderate bilateral diffuse pulmonary peripheral fibrotic changes with interval progressio n from 2018 CT.
== END | disposition home or self-care (01) ==
LOC: RADCTMAIN 16:03
PROVIDERS: ATTEND Internal Medicine
DX: J84.10 Pulmonary fibrosis, unspecified (principal)
CPT/HCPCS: 71250

== ENCOUNTER → 2022-05-08 | Outpatient (CLI) | payer MEDICARE ==
--- NOTE | 2022-05-08 15:38 | P.SLEEP ---
History of Present Illness DATE: 05/08/2022 CONSULTATION/NEW PATIENT EVALUATION HISTORY OF PRESENT ILLNESS/SLEEP-WAKE EVALUATION: 81 year old gentleman had been evaluated in the sleep center for obstructive sleep apnea hypopnea syndrome. Patient has history of obstructive sleep apnea hypopnea syndrome for about 12 years she is on treatment with CPAP every night. Last time I saw patient in November 2018. His BIPAP unit is old, about 12-year-old. I checked BiPAP unit. Pressure is 15/11 cm of water. Usage is 100% of nights. Leak is 2% which is normal range. Apnea hypopnea index is 0.9 which is in normal range. SLEEP SCHEDULE: Usually sleep schedule from 11 PM until 7 AM. FALLING ASLEEP: No problems with falling asleep, no TV in bedroom. DURING SLEEP: Patient usually sleeps on the side position with BiPAP unit. He still wakes up from sleep 2 times with nocturia. No history of hypnogogical hallucinations, sleep paralysis, or cataplexy. DURING THE DAY/WAKE STATE: Sometimes patient may feels sleepiness during the day. [place] sleepiness scale is for. Patient may take nap around 1 PM. He drinks 3 caffeinated beverages during the day. PAST MEDICAL HISTORY: Hypertension, hyperlipidemia, acid reflux, diabetes mellitus, BPH. PAST SURGICAL HISTORY: Bilateral knee replacement, cataract surgery bilaterally. MEDICATIONS: Atorvastatin 40 mg once a day, tumsulosin 0.4 mg once a day, lisinopril 10 mg once a day, dutasteride 0.5 mg once a day. SOCIAL HISTORY: Quit smoking 1963, alcohol consumption occasional. FAMILY HISTORY: Hypertension, stroke, diabetes. REVIEW OF SYSTEMS: Awakenings from sleep. No fevers. No double vision. No recent chest pain. No shortness of breath. No abdominal pain. No bleeding episodes. No blood in urine. No seizure episodes. PHYSICAL EXAMINATION: GENERAL: A pleasant patient without any distress. VITAL SIGNS: BP 159/78 , HR 46 , RR 18 , weight 237.2 pounds, height 5 foot 6 inches, body mass index 38.2 . HEENT: PERRLA, EOMI. Evaluation of oropharynx showed tongue protrudes midline, low position of soft palate Mallampati 4. NECK: Supple. No JVD. Thyroid is not palpable. 18 inches in circumference. LUNGS: Clear to percussion and to auscultation. Good air exchange. No wheezing or rhonchi. HEART: S1, S2 regular. No murmurs, gallops or rubs. ABDOMEN: Soft and nontender. Bowel sounds are present. No organomegaly appreciated. EXTREMITIES: No clubbing or cyanosis. COMPLAINT INVESTIGATIONS OFFICER: Awake, alert, and oriented x3. Cranial nerves 2 to 7 intact. There is no fasciculation or atrophy noted. No focal deficits observed. ASSESSMENT: 1. Obstructive sleep apnea-hypopnea syndrome for many years. Patient demonstrated great compliance with treatment, benefiting from treatment. BiPAP unit is about 12 years old, has to be replaced. 2. Hypertension. 3 BPH. 4. Hyperlipidemia. 5 acid reflux. 6. Diabetes mellitus. 7. Status post bilateral knee replacement. 8. Status post bilateral cataract surgery. PLAN: 1. Prescription to replace BiPAP unit. 2. Patient should continue to use BiPAP equipment every night for the whole night 3. Preferable position during sleep on the side. 4. No driving if patient feels any sleepiness. Patient is aware of civil and criminal liability for unsafe driving. 5. Sleep hygiene with regular sleep time for at least 7.5-8 hours. 6. Watching weight. 7. Follow-up visit in 12 months after patient will received new BiPAP unit to document compliance with treatment and make any necessary adjustments. Thank you very much for referring this patient for consultation. Sincerely, Micky South MD, PhD, FAASM. Diplomat of [place] [employer], Sleep Medicine Board by [employer] Poultry Feed Supervisor of [facility] [place] Past Medical History Past Medical History: Diabetes Mellitus, Hyperlipidemia, Hypertension, Osteoarthritis (OA), Prostate Disorder, Sleep Apnea/CPAP/BIPAP History of Any Multi-Drug Resistant Organisms: None Reported Past Surgical History: Hernia Repair, Joint Replacement Past Psychological History: No Psychological Hx Reported Past Alcohol Use History: Occasional Past Drug Use History: None Reported Medications and Allergies Home Medications Medication Instructions Recorded Confirmed Type Atorvastatin [Lipitor] 40 mg PO Q48H 10/11/19 10/11/19 History Atorvastatin [Lipitor] 80 mg PO Q48H 10/11/19 10/11/19 History Dutasteride 0.5 mg PO DAILY 10/11/19 10/11/19 History Fluticasone Nasal [place] [Flonase 1 spray EA NOSTRIL DAILY 10/11/19 10/11/19 History Nasal [place]] Multivitamins, Thera [Multivitamin 1 tab PO DAILY 10/11/19 10/11/19 History (formulary)] Tamsulosin [Flomax] 0.4 mg PO BID 10/11/19 10/11/19 History metFORMIN HCL [Glucophage] 1,000 mg PO DAILY 10/11/19 10/11/19 History amLODIPine [Norvasc] 10 mg PO DAILY 10/18/19 10/18/19 History Aspirin 325 mg PO BID #60 tab 10/19/19 Rx HYDROcodone/APAP 5-325MG [[place] 5] 1 - 2 each PO Q4-6H PRN #56 tab 10/19/19 Rx Sennosides-Docusate Sodium 2 tab PO DAILY #30 tablet 10/19/19 Rx [Senokot-S] Allergies Allergy/AdvReac Type Severity Reaction Status Date / Time No Known Allergies Allergy Verified 10/18/19 05:51 Sleep Note - Sleep Note Sleep Note: Temperature: Pulse Rate: Respiratory Rate: Blood Pressure: SpO2: Height: Weight: BMI: Neck Circumference:
== END | disposition home or self-care (01) ==
LOC: SLEEP 13:24
PROVIDERS: ATTEND Internal Medicine
DX: G47.33 Obstructive sleep apnea (adult) (pediatric) (principal); I10 Essential (primary) hypertension; N40.0 Benign prostatic hyperplasia without lower urinary tract symptoms; E78.5 Hyperlipidemia, unspecified; K21.9 Gastro-esophageal reflux disease without esophagitis; E11.9 Type 2 diabetes mellitus without complications; Z98.890 Other specified postprocedural states; Z96.653 Presence of artificial knee joint, bilateral
CPT/HCPCS: 99211

== ENCOUNTER → 2022-07-09 | Outpatient (CLI) | payer MEDICARE ==
--- NOTE | 2022-07-09 15:03 | P.PN ---
Subjective DATE: 07/09/2022 FOLLOW UP VISIT. Patient with obstructive sleep apnea hypopnea syndrome return to sleep center for follow-up visit. Information from previous visit have been reviewed. This is first visit on new BiPAP unit. Patient is using BPAP equipment every night for the whole night. The patient does not have significant problems with the mask, PAP unit and humidification. [place] sleepiness scale is 7 today, which is in normal range. I checked information from BPAP unit. BPAP unit pressure is 15/11 cm H2O. Usage is 100 % for more then 4 hours, average 7.25 hours per night. Leak is 13.7 l/m, which is in acceptable range. Apnea Hypopnea Index is 1.1, which is normal. MEDICATIONS:1. Atorvastatin 40 mg once a day 2., Tamsulosin 0.4 mg once a day 3. Lisinopril 10 mg once a day 4. Dutasteride 0.5 mg once a day 5. Fluticasone 6. Metformin 1000 mg once a day 7. Hydrocodon During physical exam: GENERAL: A pleasant patient without any distress. VITAL SIGNS: BP 175/88, HR 56, RR 16, weight 234.8, temperature 97.1, oxygen saturation at room air 97 % . HEENT: PERRLA, EOMI.low position of soft palate, Mallapati 4 . NECK: Supple. No JVD. LUNGS: Clear to percussion and to auscultation. Good air exchange. No wheezing or rhonchi. HEART: S1, S2 regular. ABDOMEN: Soft and nontender. Slightly obese EXTREMITIES: No clubbing or cyanosis. LUGGAGE MAKER: Awake, alert, and oriented x3. No focal deficit. Impressions: 1. Obstructive sleep apnea-hypopnea syndrome. Patient demonstrated great compliance with treatment, benefiting from treatment. 2. Hypertension. 3. BPH. 4. Diabetes mellitus. 5. Hyperlipidemia. 6. Acid reflux. 7. Status post bilateral knee replacement. 8. Status post bilateral cataract surgery. Plan: 1. Continue using BPAP equipment every night for the whole night. 2. To change air filter at least 1-2 times per month. 3. BPAP unit should stay lower then position of the head. 4. Advised patient to remove all remaining water from humidifier canister daily and make it dry after each usage. Refill canister with fresh distilled water before each usage. 5. Sleep hygiene with regular time in bed for at least 8 hours. 6. Precautions related to driving. No driving if feel any sleepiness. 7. I will maintain prescription for BPAP supplies including mask, tube, filters. 8. Follow up visit in 6 months or earlier if patient has any problems. 9. Watching and losing weight. Thank you very much for allowing me to participate in the management of your patient. Micky South MD, PhD, FAASM. Diplomat of [place] [employer], Sleep Medicine Board by [employer] Laster Hand of [facility] [place]
== END ==
LOC: SLEEP 14:29
PROVIDERS: ATTEND Internal Medicine
DX: G47.33 Obstructive sleep apnea (adult) (pediatric) (principal); I10 Essential (primary) hypertension; E11.9 Type 2 diabetes mellitus without complications; E78.5 Hyperlipidemia, unspecified; K21.9 Gastro-esophageal reflux disease without esophagitis; Z96.653 Presence of artificial knee joint, bilateral; N40.0 Benign prostatic hyperplasia without lower urinary tract symptoms; Z98.890 Other specified postprocedural states; Z79.84 Long term (current) use of oral hypoglycemic drugs; Z79.899 Other long term (current) drug therapy; Z87.891 Personal history of nicotine dependence
CPT/HCPCS: 99212

== ENCOUNTER → 2022-09-05 | Outpatient (CLI) | payer MEDICARE ==
--- NOTE | 2022-09-06 08:09 | CT ---
EXAMINATION TYPE: CT chest wo con CT DLP: 1585.9 mGycm, Automated exposure control for dose reduction was used. DATE OF EXAM: 09/05/2022 5:15 PM COMPARISON: CT chest 09/27/2020, CT 01/21/2018 CLINICAL INDICATION:Male, 82 years old with history of J84.9 INTERSTITIAL PULMONARY DISEASE, UNSPECIF IED;, f/u lung disease TECHNIQUE: Multiple axial images were obtained through the chest. Sagittal and coronal reformats were created for review. Contrast used: none Oral contrast used: none. FINDINGS: LUNGS/ PLEURA: There is predominantly peripheral reticular changes extending from apex to base which slightly increased predominance in lung bases. There is some bronchiectasis/possibly early honeycombi ng within the lung bases. No evidence of air trapping. AIRWAY: Patent and unremarkable. HEART: Heart is mildly enlarged for size. There is coronary artery atherosclerosis. MEDIASTINUM: No gross evidence of adenopathy. VASCULATURE: No aortic aneurysm. MUSCULOSKELETAL: No acute osseous abnormalities SOFT TISSUES/LYMPH NODES: Unremarkable. LOWER NECK: No significant findings. UPPER ABDOMEN: No significant findings. IMPRESSION: Overall similar appearance of interstitial lung changes compared to prior 09/27/2020 and progressed fro m 01/21/2018. Findings of predominantly peripheral reticulation worse in the lung bases. Bronchiectasi s and/or early honeycombing thought to be present most pronounced in the right lung base, findings co mpatible with probable UIP pattern.
== END | disposition home or self-care (01) ==
LOC: RADCTMAIN 16:47
PROVIDERS: ATTEND Internal Medicine
DX: J84.9 Interstitial pulmonary disease, unspecified (principal)
CPT/HCPCS: 71250

== ENCOUNTER → 2023-01-14 | Outpatient (CLI) | payer MEDICARE ==
--- NOTE | 2023-01-14 14:26 | P.PN ---
Subjective DATE: 01/14/2023 FOLLOW UP VISIT. Patient with obstructive sleep apnea hypopnea syndrome return to sleep center for follow-up visit. Information from previous visit have been reviewed. Patient is using PAP equipment every night for the whole night, getting PAP supplies in time. The patient does not have significant problems with the mask, PAP unit and humidification. [place] sleepiness scale is 6, which is normal. I checked information from PAP unit. BPAP unit pressure 15/11 cm H2O. Usage is 100 % for more then 4 hours, average 6.2 hours per night. Leak is 12 l/m, which is in acceptable range. Apnea Hypopnea Index is 0.1, which is normal. MEDICATIONS:1. Atorvastatin 40 mg once a day 2. Flomax 0.4 mg once a day 3. Losartan 20 mg once a day 4. Singulair 10 mg once a day During physical exam: GENERAL: A pleasant patient without any distress. VITAL SIGNS: BP 172/80, HR 53, RR 18 , weight to 34, temperature 98.1, oxygen saturation at room air 94 % . HEENT: PERRLA, EOMI.low position of soft palate, Mallapati 4 . NECK: Supple. No JVD. LUNGS: Clear to percussion and to auscultation. Good air exchange. No wheezing or rhonchi. HEART: S1, S2 regular. ABDOMEN: Soft and nontender. Slightly obese EXTREMITIES: No clubbing or cyanosis. VICE PRESIDENT TAX: Awake, alert, and oriented x3. No focal deficit. Impressions: 1. Obstructive sleep apnea-hypopnea syndrome. Patient demonstrated great compliance with treatment, benefiting from treatment. 2. Hypertension. 3. Hyperlipidemia. 4. History of diabetes mellitus. 5. Acid reflux. 6. BPH. 7. Status post bilateral cataract surgery. 8. Status post bilateral knee replacement. Plan: 1. Continue using PAP equipment every night for the whole night. 2. To change air filter at least 1-2 times per month. 3. PAP unit should stay lower then position of the head. 4. Advised patient to remove all remaining water from humidifier canister daily and make it dry after each usage. Refill canister with fresh distilled water before each usage. 5. Sleep hygiene with regular time in bed for at least 8 hours. 6. Precautions related to driving. No driving if feel any sleepiness. 7. I will maintain prescription for PAP supplies including mask, tube, filters. 8. Watching and losing weight. 9. Follow up visit in 6 months or earlier if patient has any problems. Thank you very much for allowing me to participate in the management of your patient. Micky South MD, PhD, FAASM. Diplomat of [place] [employer], Sleep Medicine Board by [place] [employer] Truck Driver Helper of [facility] [place]
== END ==
LOC: SLEEP 13:50
PROVIDERS: ATTEND Internal Medicine
DX: G47.33 Obstructive sleep apnea (adult) (pediatric) (principal); I10 Essential (primary) hypertension; E78.5 Hyperlipidemia, unspecified; E11.9 Type 2 diabetes mellitus without complications; K21.9 Gastro-esophageal reflux disease without esophagitis; N40.0 Benign prostatic hyperplasia without lower urinary tract symptoms; Z98.890 Other specified postprocedural states; Z96.653 Presence of artificial knee joint, bilateral; Z99.89 Dependence on other enabling machines and devices; Z79.84 Long term (current) use of oral hypoglycemic drugs; Z79.85 Long-term (current) use of injectable non-insulin antidiabetic drugs; Z79.899 Other long term (current) drug therapy; Z87.891 Personal history of nicotine dependence
CPT/HCPCS: 99212

== ENCOUNTER → 2023-08-27 | Outpatient (CLI) | payer MEDICARE ==
--- NOTE | 2023-08-27 16:45 | P.PN ---
Subjective DATE: 08/27/2023 FOLLOW UP VISIT. Patient with obstructive sleep apnea hypopnea syndrome return to sleep center for follow-up visit. Information from previous visit have been reviewed. Patient is using PAP equipment every night for the whole night, getting PAP supplies in time. The patient does not have significant problems with the mask, PAP unit and humidification. [place] sleepiness scale is 3, which is normal. I checked information from PAP unit. BPAP unit pressure 15/11 cm H2O. Usage is 100 % for more then 4 hours, average 6.4 hours per night. Leak is 8 l/m, which is in acceptable range. Apnea Hypopnea Index is 0.1, which is normal. MEDICATIONS:1. Atorvastatin 10 mg once a day 2. Lisinopril 20 mg once a day 3. Flomax 0.4 mg once a day 4. Singulair 10 mg once a day During physical exam: GENERAL: A pleasant patient without any distress. VITAL SIGNS: BP 162/72, HR 46, RR 16, weight 236.2, temperature 97.6, oxygen saturation at room air 96 % . HEENT: PERRLA, EOMI.low position of soft palate, Mallapati 4 . NECK: Supple. No JVD. LUNGS: Clear to percussion and to auscultation. Good air exchange. No wheezing or rhonchi. HEART: S1, S2 regular. ABDOMEN: Soft and nontender.[] EXTREMITIES: No clubbing or cyanosis. GOLF CADDY: Awake, alert, and oriented x3. No focal deficit. Impressions: 1. Obstructive sleep apnea-hypopnea syndrome. Patient demonstrated great compliance with treatment, benefiting from treatment. 2. Hypertension. 3. Hyperlipidemia. 4. History of diabetes mellitus. 5. Acid reflux. 6. BPH. 7. Status post bilateral knee replacement. 8. Status post bilateral cataract surgery. Plan: 1. Continue using PAP equipment every night for the whole night. 2. To change air filter at least 1-2 times per month. 3. PAP unit should stay lower then position of the head. 4. Advised patient to remove all remaining water from humidifier canister daily and make it dry after each usage. Refill canister with fresh distilled water before each usage. 5. Sleep hygiene with regular time in bed for at least 8 hours. 6. Precautions related to driving. No driving if feel any sleepiness. 7. I will maintain prescription for PAP supplies including mask, tube, filters. 8. Follow up visit in 6 months or earlier if patient has any problems. 9. Watching and losing weight. Thank you very much for allowing me to participate in the management of your patient. Micky South MD, PhD, FAASM. Diplomat of [place] [employer], Sleep Medicine Board by [place] [employer] Editor In Chief [employer] [facility] [place]
== END ==
LOC: 3 N SLEEP 14:19
PROVIDERS: ATTEND Internal Medicine
DX: G47.33 Obstructive sleep apnea (adult) (pediatric) (principal); I10 Essential (primary) hypertension; E11.9 Type 2 diabetes mellitus without complications; E78.5 Hyperlipidemia, unspecified; K21.9 Gastro-esophageal reflux disease without esophagitis; N40.0 Benign prostatic hyperplasia without lower urinary tract symptoms; Z79.899 Other long term (current) drug therapy; Z96.653 Presence of artificial knee joint, bilateral; Z98.41 Cataract extraction status, right eye; Z98.42 Cataract extraction status, left eye; Z99.89 Dependence on other enabling machines and devices; Z79.82 Long term (current) use of aspirin; Z79.84 Long term (current) use of oral hypoglycemic drugs; Z87.891 Personal history of nicotine dependence
CPT/HCPCS: 99212

== ENCOUNTER → 2023-10-14 | Outpatient (CLI) | payer MEDICARE ==
--- NOTE | 2023-10-14 15:58 | CT ---
Exam: CT Chest without contrast. Date: 10/14/2023. Comparison: 09/05/2022. History: Interstitial pulmonary disease follow-up. Technique: CT examination of the chest was performed without contrast. Coronal and sagittal reformats were performed. CT dose lowering techniques were used, to include: automated exposure control, adjus tment for patient size, and/or use of iterative reconstruction. FINDINGS: Mediastinum and Britt: There is no axillary, mediastinal or hilar lymphadenopathy. Pleural and Pericardial spaces: There are no pleural or pericardial effusions. Upper Abdomen: Multiple gallstones are seen within the gallbladder. Diverticuli are seen within the v isualized portions of the colon. The remainder the visualized upper abdomen otherwise appears unremar kable. Cardiovascular: There is mild vascular calcification of the aortic arch without evidence of aneurysma l dilation. Moderate patchy coronary calcifications are seen. Lung Parenchyma and Airways: There is scattered subpleural areas of reticulation seen throughout the lungs bilaterally which is compatible with fibrotic changes. There is some minimal bronchiectasis see n in the lower lobes and some likely mild honeycombing seen in the posterior aspect of the lower lobe s bilaterally compatible with pulmonary fibrosis. The overall appearance is very similar to slightly progressed when compared the previous examination. Bones: No fracture or aggressive osseous lesion. IMPRESSION: 1. Pulmonary fibrotic changes as above. 2. Coronary artery calcifications. 3. No acute findings. 4. Cholelithiasis.
== END | disposition home or self-care (01) ==
LOC: RADCTMAIN 14:52
PROVIDERS: ATTEND Internal Medicine
DX: J84.10 Pulmonary fibrosis, unspecified (principal); I25.10 Atherosclerotic heart disease of native coronary artery without angina pectoris; J84.9 Interstitial pulmonary disease, unspecified; K80.20 Calculus of gallbladder without cholecystitis without obstruction
CPT/HCPCS: 71250

== ENCOUNTER → 2024-10-26 | Outpatient (CLI) | payer MEDICARE ==
[2024-10-26 10:47] VITALS: BP 144/76; PULSE 83; RESP 12; TEMP 97.7
--- NOTE | 2024-10-26 11:06 | P.PROGSL ---
Subjective DATE: 10/26/2024 FOLLOW UP VISIT. Patient with obstructive sleep apnea hypopnea syndrome return to sleep center for follow-up visit. Information from previous visit have been reviewed. Patient is using PAP equipment every night for the whole night, getting PAP supplies in time. Patient is on oxygen supplement 2 L/min. The patient does not have significant problems with the mask, PAP unit and humidification. [place] sleepiness scale is 8, which is borderline normal. I checked information from PAP unit. BPAP unit pressure 15/11 cm H2O. Usage is 100% for more then 4 hours, average 6.4 hours per night. Leak is 4l/m, which is in good range. Apnea Hypopnea Index is 0.1, which is perfect. MEDICATIONS have been reviewed, please see below. During physical exam: GENERAL: A pleasant patient without any distress. VITAL SIGNS: Please see below, weight is 239.4 lbs. HEENT: PERRLA, EOMI.low position of soft palate, Mallapati 4 . NECK: Supple. No JVD. LUNGS: Clear to percussion and to auscultation. Good air exchange. No wheezing or rhonchi. HEART: S1, S2 regular. ABDOMEN: Soft and nontender. Slightly obese EXTREMITIES: No clubbing or cyanosis. SOFTBALL WINDER: Awake, alert, and oriented x3. No focal deficit. Impressions: 1. Obstructive sleep apnea-hypopnea syndrome. Patient demonstrated great compliance with treatment, benefiting from treatment. 2. Idiopathic pulmonary fibrosis. Patient is on oxygen supplement. 3. Obesity, BMI 38.5, patient increased weight on 3 pounds comparing with previous visit. 4. Diabetes mellitus, according to patient hemoglobin A1c in the range between 6 and 7. 5. Hypertension. 6. Hyperlipidemia. 7. Acid reflux. 8. BPH. 9. Status post bilateral knee replacement. 10. Status post bilateral cataract surgery. Plan: 1. Continue using PAP equipment every night for the whole night. 2. Sleep hygiene with regular time in bed for at least 7.5-8 hours 3. PAP unit should stay lower then position of the head. 4. Advised patient to remove all remaining water from humidifier canister daily and make it dry after each usage. Refill canister with fresh distilled water before each usage. 5. Watching and losing weight. 6. Precautions related to driving. No driving if feel any sleepiness. 7. I will maintain prescription for PAP supplies including mask, tube, filters. 8. Follow up visit in 8 months or earlier if patient has any problems. Thank you very much for allowing me to participate in the management of your patient. Micky South MD, PhD, FAASM. Diplomat of [place] [employer], Sleep Medicine Board by [place] [employer] [facility] [place] Objective - Vital Signs Vital Signs: Vital Signs Temp 97.7 F 10/26/24 10:46 Pulse 83 10/26/24 10:46 Resp 12 10/26/24 10:46 BP 144/76 10/26/24 10:46 Pulse Ox 89 L 10/26/24 10:46 FiO2 Intake & Output 10/25/24 10/26/24 10/26/24 18:59 06:59 18:59 Weight 108.409 kg Home Medications: Home Medications Medication Instructions Recorded Confirmed Type Atorvastatin [Lipitor] 40 mg PO Q48H 10/11/19 10/26/24 History Dutasteride 0.5 mg PO DAILY 10/11/19 10/26/24 History Fluticasone Nasal [place] [Flonase 1 spray EA NOSTRIL DAILY 10/11/19 10/11/19 History Nasal [place]] Multivitamins, Thera [Multivitamin 1 tab PO DAILY 10/11/19 10/26/24 History (formulary)] Tamsulosin [Flomax] 0.4 mg PO BID 10/11/19 10/26/24 History metFORMIN HCL [Glucophage] 1,000 mg PO DAILY 10/11/19 10/11/19 History amLODIPine [Norvasc] 10 mg PO DAILY 10/18/19 10/18/19 History Aspirin 325 mg PO BID #60 tab 10/19/19 10/26/24 Rx HYDROcodone/APAP 5-325MG [[place] 5] 1 - 2 each PO Q4-6H PRN #56 tab 10/19/19 Rx Sennosides-Docusate Sodium 2 tab PO DAILY #30 tablet 10/19/19 Rx [Senokot-S] Montelukast [Singulair] 10 mg PO DAILY 10/26/24 10/26/24 History Valsartan/Hydrochlorothiazide 12.5 mg DAILY 10/26/24 10/26/24 History [Valsartan-Hctz 320-12.5 mg Tab] hydroCHLOROthiazide 12.5 mg PO DAILY 10/26/24 10/26/24 History predniSONE 5 mg PO DAILY 10/26/24 History
== END ==
LOC: 3 N SLEEP 10:19
PROVIDERS: ATTEND Internal Medicine
DX: G47.33 Obstructive sleep apnea (adult) (pediatric) (principal); J84.112 Idiopathic pulmonary fibrosis; E11.9 Type 2 diabetes mellitus without complications; I10 Essential (primary) hypertension; E78.5 Hyperlipidemia, unspecified; K21.9 Gastro-esophageal reflux disease without esophagitis; N40.0 Benign prostatic hyperplasia without lower urinary tract symptoms; Z96.653 Presence of artificial knee joint, bilateral; Z68.38 Body mass index [BMI] 38.0-38.9, adult; Z98.49 Cataract extraction status, unspecified eye; Z87.891 Personal history of nicotine dependence
CPT/HCPCS: 99212